=== PATIENT | female | born 1980 | race Caucasian/White ===

== ENCOUNTER 2017-01-30 17:26 | Emergency (ER) | payer OTHER ==
[~2017-01-30] VITALS: Ht 170.2 cm; Wt 68.0 kg
[2017-01-30] MEDS ORDERED: VITATAB9 PO (17:49)
[2017-01-30 21:23] VITALS: BP 111/77
== END 2017-01-30 21:25 | disposition home or self-care (01) ==
LOC: M ED 19:17
DX: N91.2 Amenorrhea, unspecified (principal)

== ENCOUNTER 2020-03-15 14:12 | Emergency (ER) | payer OTHER, SELFPAY ==
[~2020-03-15] VITALS: Ht 170.2 cm; Wt 95.6 kg
[~2020-03-15 14:12] MED LIST: VITATAB9 PO
[2020-03-15] MEDS ORDERED: EPIP0.3I2 IM (14:28)
[2020-03-15] MEDS ORDERED: LIDOCAINE 2% MDV 20 ML VIAL SC ONE (15:00)
--- NOTE | 2020-03-15 15:18 | REP ---
RIGHT HAND, FOUR VIEWS: Four views of the right hand were performed. No acute fracture or dislocation is seen. There appears to be an old healed fracture of the 5th proximal phalanx. No radiopaque foreign body is seen in the soft tissues. Electronically Signed by Chris Keita MD 03/15/2020 03:34 P
[2020-03-15] MEDS ORDERED: [UNRECOGNIZED DRUG - OTHER] IM ONE (15:45)
[2020-03-15 15:59] VITALS: BP 118/75
== END 2020-03-15 16:24 | disposition home or self-care (01) ==
LOC: M ED 14:12
DX: S61.011A Laceration without foreign body of right thumb without damage to nail, initial encounter (principal); S61.216A Laceration without foreign body of right little finger without damage to nail, initial encounter; W25.XXXA Contact with sharp glass, initial encounter; Y92.099 Unspecified place in other non-institutional residence as the place of occurrence of the external cause; Y93.9 Activity, unspecified; Y99.9 Unspecified external cause status; Z87.81 Personal history of (healed) traumatic fracture; Z79.899 Other long term (current) drug therapy

== ENCOUNTER 2020-03-22 14:05 | Emergency (ER) | payer SELFPAY ==
[~2020-03-22] VITALS: Ht 170.2 cm; Wt 95.3 kg
[~2020-03-22 14:05] MED LIST changes: +EPIP0.3I2 IM
[2020-03-22 14:06] VITALS: BP 133/69
[2020-03-22] MEDS ORDERED: KEFL500C17 PO (15:00)
== END 2020-03-22 15:02 | disposition home or self-care (01) ==
LOC: M ED 14:05
DX: Z48.02 Encounter for removal of sutures (principal)

== ENCOUNTER 2020-03-25 14:54 | Emergency (ER) | payer SELFPAY ==
[~2020-03-25] VITALS: Ht 170.2 cm; Wt 95.0 kg
[~2020-03-25 14:54] MED LIST changes: +KEFL500C17 PO
[2020-03-25 14:55] VITALS: BP 122/72
== END 2020-03-25 15:20 | disposition home or self-care (01) ==
LOC: M ED 14:54
DX: Z48.02 Encounter for removal of sutures (principal); F17.200 Nicotine dependence, unspecified, uncomplicated; Z79.899 Other long term (current) drug therapy

== ENCOUNTER 2020-12-26 20:22 | Emergency (ER) | payer SELFPAY ==
[~2020-12-26] VITALS: Ht 170.2 cm; Wt 94300.0 kg
[2020-12-26 22:24] VITALS: BP 118/56
== END 2020-12-26 22:25 | disposition home or self-care (01) ==
LOC: M ED 20:22
DX: Z20.828 Contact with and (suspected) exposure to other viral communicable diseases (principal); R11.0 Nausea; Z79.899 Other long term (current) drug therapy
CPT/HCPCS: 99283; U0003

== ENCOUNTER 2022-06-23 15:35 | Emergency (ER) | payer MEDICAID, SELFPAY ==
[~2022-06-23] VITALS: Ht 170.2 cm; Wt 90.9 kg
[2022-06-23 15:35] VITALS: BP 123/75
[2022-06-23 16:44] LABS: RSV AMPLIFICATION NEGATIVE (NEGATIVE)
== END 2022-06-23 18:15 | disposition home or self-care (01) ==
LOC: M ED 15:35
DX: U07.1 COVID-19 (principal)

== ENCOUNTER 2024-07-03 19:04 | Emergency (ER) | payer OTHER ==
[~2024-07-03] VITALS: Ht 170.2 cm; Wt 91.3 kg
[2024-07-03 19:04] VITALS: BP 123/78; TEMP 98.9; O2SAT 98
== END 2024-07-04 00:53 | disposition home or self-care (01) ==
LOC: M ED 19:04
DX: M79.645 Pain in left finger(s) (principal); W19.XXXA Unspecified fall, initial encounter; Y92.9 Unspecified place or not applicable; Y93.89 Activity, other specified; Y99.9 Unspecified external cause status; Z79.899 Other long term (current) drug therapy

== ENCOUNTER → 2024-12-10 | Outpatient (CLI) | payer OTHER | LOC: M PLARAD 09:42 | PROVIDERS: ATTEND Physician Assistant | DX: S63.642A Sprain of metacarpophalangeal joint of left thumb, initial encounter (principal); M79.645 Pain in left finger(s); M18.12 Unilateral primary osteoarthritis of first carpometacarpal joint, left hand ==

== ENCOUNTER 2025-01-20 08:45 | Day surgery (SDC) | payer OTHER ==
[~2025-01-20] VITALS: Ht 170.2 cm; Wt 92.1 kg
[~2025-01-20 08:45] MED LIST changes: +CETI-24 PO; +KETOROLAC 60MG 2ML VIAL As Ordered ONE; +LIDOCAINE 2% 100MG/5ML SDV (FOR ANES.) As Ordered ONE; +MIDAZOLAM INJ 2MG/2ML VIAL As Ordered ONE; +ONDANSETRON 4MG 2ML VIAL As Ordered ONE; +fentaNYL 100 MCG/2 ML INJECTION As Ordered ONE; +propofoL 200 MG/20 ML VIAL As Ordered ONE
[2025-01-20] MEDS ORDERED: LIDOCAINE 1% SDV 5ML VIAL SC PRN (09:20)
[2025-01-20] MEDS: LR 1,000 ML IV SCH (09:49)
[2025-01-20] MEDS: ceFAZolin 2 GM/D5W 50 ML IV BAG As Ordered ONE (10:15)
[2025-01-20] MEDS: ceFAZolin SOD 2 GM in IV 1 EA IV ONE (10:25)
[2025-01-20] MEDS ORDERED: ACETAMINOPHEN 1000MG/100ML IV BAG As Ordered ONE (10:26)
[2025-01-20] MEDS ORDERED: dexmedeTOMIDine (4MCG/ML)200MCG/50ML BTL (PRECEDEX) As Ordered ONE (10:31)
[2025-01-20] MEDS: BACITRACIN OINTMENT 30GM TUBE As Ordered ONE (11:18)
[2025-01-20] MEDS ORDERED: ONDANSETRON 4MG 2ML VIAL IV PRN (11:40)
[2025-01-20] MEDS ORDERED: LR 1,000 ML IV SCH (11:40)
[2025-01-20] MEDS ORDERED: fentaNYL 100 MCG/2 ML INJECTION IV PRN (11:40)
[2025-01-20] MEDS ORDERED: PERC5TAB12 PO (11:52)
[2025-01-20] MEDS: HYDROMORPHONE HCL 0.5 MG/ 0.5 ML SYRINGE IV PRN (11:56)
[2025-01-20] MEDS: oxyCODONE 5MG TAB PO PRN (11:59)
[2025-01-20 12:42] VITALS: BP 99/55; TEMP 98.5; O2SAT 97
== END 2025-01-20 13:11 | disposition home or self-care (01) ==
LOC: M SDC 08:45
PROVIDERS: ATTEND Orthopaedic Surgery Hand Surgery
DX: S63.642D Sprain of metacarpophalangeal joint of left thumb, subsequent encounter (principal); S63.418A Traumatic rupture of collateral ligament of other finger at metacarpophalangeal and interphalangeal joint, initial encounter; Z91.81 History of falling; J30.2 Other seasonal allergic rhinitis; F17.210 Nicotine dependence, cigarettes, uncomplicated; K59.00 Constipation, unspecified; G43.909 Migraine, unspecified, not intractable, without status migrainosus; J45.909 Unspecified asthma, uncomplicated; Z79.899 Other long term (current) drug therapy
CPT/HCPCS: 26540; 76000; C1713; J0131; J0665; J0690; J1100; J1171; J1885; J2250; J2405; J3010

== ENCOUNTER → 2025-01-29 | Outpatient (CLI) | payer OTHER ==
[~2025-01-29] MED LIST changes: -KETOROLAC 60MG 2ML VIAL As Ordered ONE; -LIDOCAINE 2% 100MG/5ML SDV (FOR ANES.) As Ordered ONE; -MIDAZOLAM INJ 2MG/2ML VIAL As Ordered ONE; -ONDANSETRON 4MG 2ML VIAL As Ordered ONE; +PERC5TAB12 PO; -fentaNYL 100 MCG/2 ML INJECTION As Ordered ONE; -propofoL 200 MG/20 ML VIAL As Ordered ONE
== END ==
LOC: M SOG 07:58
PROVIDERS: ATTEND Physician Assistant
DX: M25.642 Stiffness of left hand, not elsewhere classified (principal); S63.418D Traumatic rupture of collateral ligament of other finger at metacarpophalangeal and interphalangeal joint, subsequent encounter; M79.89 Other specified soft tissue disorders

== ENCOUNTER → 2025-02-16 | Outpatient (CLI) | payer OTHER | LOC: M SOG 08:17 | PROVIDERS: ATTEND Physician Assistant | DX: S63.418D Traumatic rupture of collateral ligament of other finger at metacarpophalangeal and interphalangeal joint, subsequent encounter (principal); M25.642 Stiffness of left hand, not elsewhere classified ==

== ENCOUNTER → 2025-03-05 | Outpatient (REF) | payer OTHER | LOC: M SFHCDERM 17:04 | PROVIDERS: ATTEND Nurse Practitioner Family | DX: D49.2 Neoplasm of unspecified behavior of bone, soft tissue, and skin (principal) ==